=== PATIENT | female | born 1945 | race Two or more races ===

== ENCOUNTER → 2017-05-21 | Outpatient (CLI) | payer MEDICARE, BC | END | disposition home or self-care (01) | LOC: HKI 09:12 | DX: M16.11 Unilateral primary osteoarthritis, right hip (principal); Q61.8 Other cystic kidney diseases; I10 Essential (primary) hypertension; I73.89 Other specified peripheral vascular diseases | CPT/HCPCS: 20610; 73502; 73562-RT ==

== ENCOUNTER → 2017-08-28 | Outpatient (CLI) | payer MEDICARE, BC | END | disposition home or self-care (01) | LOC: HKI 15:04 | DX: M16.11 Unilateral primary osteoarthritis, right hip (principal) | CPT/HCPCS: 73562; 73562-50 ==